=== PATIENT | male | born 1975 | race Caucasian/White ===

== ENCOUNTER 2017-05-12 16:49 | Emergency (ER) | payer OTHER ==
[~2017-05-12] VITALS: Ht 182.9 cm; Wt 114.0 kg
[2017-05-12 16:53] VITALS: BP 134/80; PULSE 98; RESP 16; TEMP 97.9; O2SAT 98
[2017-05-12] MEDS ORDERED: ACETAMINOPHEN/HYDROcodone 325 MG/5 MG TAB PO ONE (18:15)
--- NOTE | 2017-05-12 18:39 | PD ---
HPI Chief Complaint: Oral / Dental Pain or Problem Time Seen by Provider: 18:00 Travel History International Travel<30 days: No Contact w/Intl Traveler<30days: No Traveled to known affect area: No History of Present Illness HPI 41-year-old male presents to the emergency room for evaluation of dental pain for the past 5 days. Patient states he has had intermittent pain after having his tooth knocked out several months ago but over the past 5 days it has become significantly increased. He has been taking [id number] pain medication and applying topical treatments without any relief in symptoms. Pain is kept him up at night. He does not have money to get into a dentist. Denies drainage , fever, chills, nausea, and vomiting. No chronic medical conditions or daily medications. PFSH Past Medical History Medical History: Denies Significant Hx Diminished Hearing: No Tetanus Vaccination: Unknown Influenza Vaccination: No ?: Not Past Surgical History Surgical History: No Previous Surgery Social History Alcohol Use: Yes Tobacco Use: No Substance Use: No Allergies-Medications (Allergen,Severity, Reaction): Coded Allergies: No Known Allergies (Verified , TRAUMA, 05/12/17) Reported Meds & Prescriptions Reported Meds & Active Scripts Active Review of Systems Except as stated in HPI: all other systems reviewed are Neg Physical Exam Narrative GENERAL: Well-nourished, well-developed male in no acute distress. Afebrile. Ambulatory. SKIN: Focused skin assessment warm/dry. HEAD: Normocephalic. EYES: No scleral icterus. No injection or drainage. NECK: Supple, trachea midline. No JVD or lymphadenopathy. DENTAL: Moderate decay throughout. Multiple loose and chipped teeth. No malocclusion. There is erythematous gingiva around the central incisors. No obvious abscess. CARDIOVASCULAR: Regular rate and rhythm without murmurs, gallops, or rubs. RESPIRATORY: Breath sounds equal bilaterally. No accessory muscle use. Data Data Last Documented VS Vital Signs Date Time Temp Pulse Resp B/P (MAP) Pulse Ox O2 Delivery O2 Flow Rate FiO2 05/12/17 16:53 97.9 98 16 134/80 (98) 98 Orders Orders Acetamin-Hydrocod 325-5 Mg ([place] 5-325 (05/12/17 18:15) MDM Medical Decision Making Medical Screen Exam Complete: Yes Emergency Medical Condition: Yes Medical Record Reviewed: Yes Differential Diagnosis Dentalgia, dental abscess, dental infection Narrative Course 41-year-old male presents to the emergency room for evaluation of dental pain for the past 5 days. Patient denies systemic signs of infection. Physical exam reveals erythematous gingiva but no obvious abscess. Patient discharged with penicillin and told to follow up with dentist. Given Lortab in the emergency room. He understands and agrees to plan. Diagnosis Primary Impression: Dental abscess Referrals: Dentist Additional Instructions: Rest and drink plenty of fluids. [place] your teeth twice daily. Penicillin as directed, until gone. Follow-up with a dentist. Return to the emergency room for worsening symptoms. Med/Other Pt SpecificInfo: Prescription(s) given Disposition: 01 DISCHARGE HOME Condition: Stable Flores Ayala May 12, 2017 18:39
[2017-05-12] MEDS ORDERED: PENI500T PO (18:40)
== END 2017-05-12 18:55 | disposition home or self-care (01) ==
LOC: PHEFT 16:49
DX: K04.7 Periapical abscess without sinus (principal)
CPT/HCPCS: 99283